=== PATIENT | male | born 1955 | race Caucasian/White ===

== ENCOUNTER 2021-05-29 08:38 | Emergency (ER) | payer MEDICARE, OTHER ==
[~2021-05-29] VITALS: Ht 182.9 cm; Wt 86.4 kg
[~2021-05-29 08:38] MED LIST: CLON-592 PO; ESOM40CA PO; GABA-1181 PO; HYDR-308 PO; OLAN5TAB52 PO; TRAM50TA4 PO
[2021-05-29 08:56] VITALS: BP 138/73
[2021-05-29] MEDS ORDERED: AMOX1TAB16 PO (09:02)
[2021-05-29] MEDS ORDERED: SULF-261 PO (09:02)
[2021-05-29] MEDS ORDERED: LIDOCAINE/PF 1% 2 ML VIAL IM ONE (09:45)
[2021-05-29] MEDS ORDERED: CefTRIAXone SODIUM 1 GM/VIAL IM ONE (09:45)
== END 2021-05-29 11:29 | disposition home or self-care (01) ==
LOC: EMS 08:38
DX: L97.519 Non-pressure chronic ulcer of other part of right foot with unspecified severity (principal); L08.9 Local infection of the skin and subcutaneous tissue, unspecified; F31.9 Bipolar disorder, unspecified; F20.9 Schizophrenia, unspecified
CPT/HCPCS: 96372; 99283; J0696; J3490